=== PATIENT | female | born 1975 | race Native Hawaiian/Other Pacific Islander ===

== ENCOUNTER 2018-07-17 21:07 | Emergency (ER) | payer OTHER ==
[~2018-07-17] VITALS: Ht 154.9 cm; Wt 59.0 kg
[2018-07-17 22:47] VITALS: BP 125/60; TEMP 98.3
== END 2018-07-17 22:49 | disposition home or self-care (01) ==
LOC: ED 21:07
DX: T78.40XA Allergy, unspecified, initial encounter (principal); L29.9 Pruritus, unspecified
CPT/HCPCS: 96372; 99282; J2930